=== PATIENT | female | born 1985 | race Caucasian/White ===

== ENCOUNTER 2018-12-23 18:31 | Observation (INO) | payer OTHER, SELFPAY ==
[2018-12-23 18:32] VITALS: BP 139/68; PULSE 98; RESP 18; TEMP 36.6; O2SAT 96; BMI 47.8
--- NOTE | 2018-12-23 19:01 | CT_ITS ---
We are attempting to reach an attending provider to discuss findings. An addendum with communication details will be sent when the communication is complete. STUDY: CT ABDOMEN AND PELVIS WITH CONTRAST REASON FOR EXAM: Female, 33 years old. Right lower quadrant pain and nausea RADIATION DOSAGE (If Supplied By Facility): CTDIvol = ( 17.07 ) mGy, DLP = ( 1297.68 ) mGycm TECHNIQUE: Transaxial images were obtained from the dome of the diaphragm to the symphysis pubis with oral contrast. 100 IV/Oral Isovue 300 was administered. Sagittal and coronal images were reconstructed. Individualized dose optimization techniques were used for this CT. COMPARISON: None. FINDINGS: The visualized lung bases are unremarkable. The visualized portions of the heart are within normal limits. Normal liver. The gallbladder appears to contain several gas containing lucent gallstones. Normal spleen. Normal pancreas. Normal bilateral adrenal glands. There is a small peripelvic cyst of the right kidney. Normal left kidney. Normal visualized stomach. Normal small intestine. Normal colon. The appendix is distended, measuring up to 10 mm in diameter. The appendix is fluid-filled. Periappendiceal fatty stranding is present. Normal abdominal aorta. Normal inferior vena cava. Normal retroperitoneum. Normal urinary bladder. The uterus and adnexal structures are unremarkable. Normal abdominal wall. Normal osseous structures. CT/Abdomen/Pelvis WITH Contrast IMPRESSION: The appendix is distended, fluid-filled, and demonstrates thickened contreras, it measures up to 10 mm in diameter. Periappendiceal fatty stranding is present. Findings are compatible with acute appendicitis. The gallbladder appears to contain several gas containing lucent gallstones. There is no evidence of free intra-abdominal or intrapelvic air or fluid. Electronically Signed: William Pham MD at 21:20 EDT , Service support ,
--- NOTE | 2018-12-23 19:03 | ED.DCSUM_ITS ---
- ER Visit Summary Date of Service: 12/23/18 Chief Complaint: Abdominal pain History of Present Illness: The patient is a 33 F with right lower abdominal pain. Symptoms started about 6 to 8 hours ago. She never had this before. Associate with nausea and decreased appetite. No history of abdominal surgery. 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 No other GI symptoms. No fever. No skin changes. No abdominal surgeries. Physical Examination: Afebrile and vital signs unremarkable. Right lower quadrant tenderness. No guarding or rebound. No flank tenderness. Skin appears normal. Test Results: CT, labs, urinalysis pending. Emergency Department Course and Treatment: Patient was treated with IV fluids. She declined pain medicine. Laboratory studies all fairly unremarkable. Urinalysis showed positive nitrites. test was negative. CT showed a dilated, fluid-filled appendix with stranding consistent with acute appendicitis. She also has gallstones. Treatment Plan: Patient treated with Zosyn. She has been n.p.o. since about 4:[address] Clancy was contacted for further care. Disposition: Admission Impression: 1. Acute appendicitis This note was generated with [employer] dictation software. It may contain incorrect words, spelling, and punctuation that were not noted in review of the chart prior to signing ED Disposition - Plan for ED Patient: Referrals: Austin Negro MD [Primary Care Provider] -
[2018-12-23 19:29] LABS: Mucous, Urine 0 SEEN /hpf (<or=2+); Red Blood Cells-Urine 0 SEEN /hpf (0-5)
[2018-12-23 19:43] LABS: Color, Urine Yellow (Yellow); Glucose, Dipstick Normal (Normal); Ketone-Dipstick Negative (Negative); Leukocyte Esterase-Dipstick Negative /ul (Negative); Nitrite-Dipstick Positive (Negative); Occult Blood-Urine Negative /ul (Negative); Protein-Dipstick Negative (Negative); Specific Gravity, Urine 1.015 (1.002-1.030); Urine Bilirubin Dipstick Negative (Negative); Urine Clarity Clear (Clear); Urine Urobilinogen Normal (Normal)
[2018-12-23 19:48] LABS: Internal QC Validated? YES +Cl - CLEAR BKGD; Pregnancy, Urine Negative Negative
[2018-12-23 19:53] LABS: Bacteria 1+ /hpf (None Seen); Squamous Epithelial Cells - UA 0-5 SEEN /hpf (5-10); White Blood Cells 0-5 SEEN /hpf (0-5)
[2018-12-23 20:02] LABS: Absolute Lymphocyte Count 1.99 X10^3/uL (0.83-4.51); Absolute Neutrophil Count 7.4 X10^3/uL (2.0-7.7); Basophil# 0.02 X10^3/uL; Basophil% 0.2 % (0-1); Eosinophil# 0.09 X10^3/uL; Eosinophils% 0.9 % (0-5); Hematocrit 39.9 % (37-47); Hemoglobin 12.9 g/dL (12.0-15.0); Lymphocyte # 1.99 X10^3/ul (4.0); Lymphocyte % 19.5 % (19-41); Mean Corp Hgb Conc 32.3 g/dL (32-36); Mean Corpuscular Hgb 29.5 pg (27.0-32.0); Mean Corpuscular Volume 91.1 fL (81-99); Monocyte# 0.74 X10^3/uL; Monocyte% 7.2 % (0-10); NRBC Flagged by Analyzer 0 % (0-5); Neutrophil # 7.35 X10^3/uL (2.7-7.7); Neutrophil % 71.9 % (47-70); Platelet Count 278 K/mm3 (150-450); RBC Distribution Width CV 12.7 % (11.6-14.6); RBC Distribution Width SD 41.8 fl (35.1-43.9); Red Blood Count 4.38 M/mm3 (4.2-5.4); White Blood Count 10.2 K/mm3 (4.4-11.0)
[2018-12-23 20:16] LABS: AST(SGOT) 11 U/L (15-37); Alanine Aminotransfer ALT/SGPT 23 U/L (13-56); Albumin, Serum 3.6 g/dL (3.2-5.0); Alkaline Phosphatase 55 U/L (45-117); Anion Gap 4 (5-15); BUN 11 mg/dL (7-18); BUN/Creat Ratio 12.7 RATIO (10-20); Calcium,Total 8.8 mg/dL (8.5-10.1); Chloride 108 mmol/L (98-107); Creatinine, Serum 0.87 mg/dL (0.55-1.02); EST Glomerular Filtration Rate 80 mL/min (>60); Est Glom Filt Rate - Afr Amer 97 mL/min (>60); Estimated Creatinine Clearance 84.31 ml/min; Globulin 3.7 g/dL (2.2-4.2); Glucose 103 mg/dL (74-106); Lipase 60 U/L (73-393); Potassium 3.8 mmol/L (3.5-5.1); Protein, Total 7.3 g/dL (6.4-8.2); Sodium Level 139 mmol/L (136-145)
[2018-12-23] MEDS: 0.9% Normal Saline 1,000 ML 1000 ML IV (21:19)
[2018-12-23 21:42] VITALS: BP 157/85; PULSE 73; RESP 18; TEMP 36.9; O2SAT 100; BMI 47.8
[2018-12-23 21:49] VITALS: BP 157/81
--- NOTE | 2018-12-23 21:49 | ED.RN ---
pt started her period, pad and mesh panties given.
--- NOTE | 2018-12-23 21:57 | HP.PCM_ITS ---
Problem List (1) Acute appendicitis Status: Acute Qualifiers: Acute appendicitis type: with localized peritonitis Appendicitis perforation presence: without perforation Appendicitis abscess presence: unspecified whether abscess present History of Present Illness Date of Admission: 12/23/18 The patient is a 33 year old F who presents to the [facility] emergency room with 1 day history of right mid abdominal pain. The patient weighs 287 pounds with a BMI of 47. She noticed right mid abdominal pain earlier today. The became became so severe that she found it difficult to mobilize and so she presented to the ER. Her white blood cell count is 10.2 with hemoglobin 12.9 hematocrit 39.9 per the count 2070 8000 with 71% neutrophils. BUN is [address] scan demonstrates fluid-filled distended appendix with periappendiceal inflammatory stranding. Incidental gallstones noted. The patient denies any previous abdominal surgery. She denies history of DVT. Past Medical History Allergies kiwi Allergy (Verified 12/23/18 18:32) Hives Home Medications: Ambulatory Orders Medication Instructions Recorded Famotidine [Pepcid AC] 20 mg PO DAILY 12/23/18 Surgical History: no surgical history Smoking Status: Current some day smoker Alcohol: Occasional - *Family History Maternal History Items: No pertinent history Review of Systems Constitutional: Reports: - - Last food at 4 PM just before coming in. HEENT: Denies: Difficulty Swallowing Cardiovascular: Denies: Chest Pain Respiratory: Denies: Cough Gastrointestinal: Reports: Abdominal Pain. Denies: Vomiting Psychiatric: Denies: Anxiety Endocrine: Denies: Change in Body Habitus VTE Information - Inpt Only VTE Present on Admission: No Patient Problems: Active and Suspected Problems Acute appendicitis (Acute) - Physical Exam General: Alert, Oriented x3, Cooperative, No apparent distress HEENT: Atraumatic Oral: Moist Mucosa Lungs: Clear to auscultation Cardiovascular: Regular rate, Regular Rhythm Abdomen: Bowel Sounds Present, Soft, Obese - Morbid obesity, - - Tender to even light palpation right mid abdomen Extremities: No Calf Tenderness Psych/Mental Status: Normal Affect Vital Signs Temp Pulse Resp BP Pulse Ox 98.4 F 73 18 157/81 H 100 12/23/18 21:42 12/23/18 21:42 12/23/18 21:42 12/23/18 21:49 12/23/18 21:42 Oxygen Delivery Method Room Air Weight: 287 lb 7.724 oz Body Mass Index (BMI) 47.8 Laboratory Tests Past 24 Hrs 12/23/18 12/23/18 12/23/18 19:25 19:25 19:54 WBC 10.2 RBC 4.38 Hgb 12.9 Hct 39.9 MCV 91.1 MCH 29.5 MCHC 32.3 RDW Std Deviation 41.8 RDW Coeff of Rodger 12.7 Plt Count 278 MPV 11.0 Immature Gran % (Auto) 0.300 Neut % (Auto) 71.9 H Lymph % (Auto) 19.5 [place] % (Auto) 7.2 Eos % (Auto) 0.9 Baso % (Auto) 0.2 Absolute Neuts (auto) 7.4 Absolute Lymphs (auto) 1.99 Absolute Nucleated RBC 0.00 Nucleated RBC % 0 Sodium Potassium Chloride Carbon Dioxide Anion Gap BUN Creatinine Estim Creat Clear Calc Est GFR (MDRD) Af Amer Est GFR (MDRD) Non-Af BUN/Creatinine Ratio Glucose Calcium Total Bilirubin AST ALT Alkaline Phosphatase Total Protein Albumin Globulin Albumin/Globulin Ratio Lipase Urine Color Yellow Urine Clarity Clear Urine pH 8.0 Ur Specific [place] 1.015 Urine Protein Negative Urine Glucose (UA) Normal Urine Ketones Negative Urine Occult Blood Negative Urine Nitrite Positive H Urine Bilirubin Negative Urine Urobilinogen Normal Ur Leukocyte Esterase Negative Urine RBC 0 SEEN Urine WBC 0-5 SEEN Ur Squamous Epith Cells 0-5 SEEN Urine Bacteria 1+ Urine Mucus 0 SEEN Urine Test Negative 12/23/18 19:54 WBC RBC Hgb Hct MCV MCH MCHC RDW Std Deviation RDW Coeff of [place]ger Plt Count MPV Immature Gran % (Auto) Neut % (Auto) Lymph % (Auto) [place] % (Auto) Eos % (Auto) Baso % (Auto) Absolute Neuts (auto) Absolute Lymphs (auto) Absolute Nucleated RBC Nucleated RBC % Sodium 139 Potassium 3.8 Chloride 108 H Carbon Dioxide 27.0 Anion Gap 4 L BUN 11 Creatinine 0.87 Estim Creat Clear Calc 84.31 Est GFR (MDRD) Af Amer 97 Est GFR (MDRD) Non-Af 80 BUN/Creatinine Ratio 12.7 Glucose 103 Calcium 8.8 Total Bilirubin 0.30 AST 11 L ALT 23 Alkaline Phosphatase 55 Total Protein 7.3 Albumin 3.6 Globulin 3.7 Albumin/Globulin Ratio 1.0 Lipase 60 L Urine Color Urine Clarity Urine pH Ur Specific [place] Urine Protein Urine Glucose (UA) Urine Ketones Urine Occult Blood Urine Nitrite Urine Bilirubin Urine Urobilinogen Ur Leukocyte Esterase Urine RBC Urine WBC Ur Squamous Epith Cells Urine Bacteria Urine Mucus Urine Test Assessment/Plan All Active Problems Acute appendicitis (Acute) 33-year-old female with signs and symptoms consistent with acute appendicitis. I have reviewed the films definitely the appendix is enlarged and there is stranding around it consistent with already a non-early acute appendicitis. I discussed treatment options with the patient nonsurgical and surgical options. We have discussed the technique, benefits, risks, alternatives. She is aware that her body habitus places her at increased interventional and noninterventional risk. Patient has already been administered Zosyn via the emergency room physician. She elects to proceed with definitive surgery. We will proceed as OR timing permits. Wayne Clancy M.D., F.A.C.S.
--- NOTE | 2018-12-23 22:03 | DCINST_ITS ---
<Wayne Clancy - Last Filed: 12/23/18 22:03> Discharge Diet: Light diet - advance as tolerated - if you have questions about your diet instructions, please talk to you doctor. Discharge Activity: May Not Drive - for 3-5 days or while taking narcotic pain medicine. May shower in (days): 1 Lifting Restrictions: 10 pounds Call your doctor if your incision/area has: Continuous Slow Oozing, Sudden Increased Bleeding, Increased Pain/ Swelling, Increased Redness, Foul Smelling Discharge Call your doctor if you observe: Fever of 101 or Higher Suture Line Care: Avoid Pulling/Pushing, Avoid Pinching/Bending Additional Dressing/Incision Instructions:: Change or remove dressing in 4 days. Leave steri-strips in place for 1 week. Allergies/Adverse Reactions: Allergies kiwi Allergy (Verified 12/23/18 18:32) Hives Medications to take at Discharge Famotidine [Pepcid AC] 20 mg PO DAILY 12/23/18 Hydrocodone Bitart/Apap 5-325 [[place] 5/325] 1 tablet PO Q6H PRN PRN 3 Days #10 tablet 12/24/18 The following prescriptions were given: Hydrocodone Bitart/Apap 5-325 [[place] 5/325] 1 tablet PO Q6H PRN PRN 3 Days #10 tablet PRN Reason: Pain Transmission Status: Sent to [facility] Primary Care Physician: Austin Negro MD [Primary Care Provider] - Test Results: Test results from this visit will be discussed in further detail at your follow- up appointment, if applicable. Please Follow Up With: Wayne Clancy MD - [phone] When: Call to make an appointment to be seen in about 10 days. <Vicky Evans - Last Filed: 12/24/18 09:57> Test Results: Test results from this visit will be discussed in further detail at your follow- up appointment, if applicable.
--- NOTE | 2018-12-23 23:15 | PCM.PN.BLA ---
Progress Note Pt on the OR table and procedure cancelled per anesthesia. Refer to their documentation. OR rescheduled per anesthesia. My request is earliest possible time possible. Kacy
[2018-12-23 23:19] VITALS: BMI 48.3
[2018-12-23 23:40] VITALS: BP 149/77; PULSE 73; RESP 16; TEMP 36.6; O2SAT 98
[2018-12-24] VITALS (11 sets, daily range): BP systolic 115–147; BP diastolic 47–116; PULSE 63–83; RESP 15–22; TEMP 36.6–36.9; O2SAT 92–100
--- NOTE | 2018-12-24 | APP_PTH ---
PATIENT: TRAVIS DENT LOC: U U#:[id number] AGE/SX: 33/F ROOM: [facility] RE12/24/[address]: Dr. Wayne Clancy MD : [id number] BED: 1 DIS: 12/24/2018 SPEC #: [id number] RECD: 12/24/18 14:33 STATUS: MIAH REQ #: [id number] ANA: 12/24/18 00:[address]: Wayne Clancy DEPT: SURGICAL PATHOLOGY RECD BY: Reji Negro ENTERED: 12/24/18 14:34 SP TYPE: APPENDIX OTHR DR: Dr. Austin Negro MD Tissues: Appendix, NOS Procedures: Surgery Specimen Level III HEADER OPERATION: Laparoscopic appendectomy PRE-OP DIAGNOSIS: Acute appendicitis TISSUE SUBMITTED: Appendix MICROSCOPIC DIAGNOSIS Appendix: Acute appendicitis and periappendicitis. SJ:carmelo 12/25/18 MICROSCOPIC DESCRIPTION Slides are reviewed. GROSS DESCRIPTION Received is one container labeled with the patient's name and designated appendix. The specimen consists of a vermiform appendix measuring 6 cm in length and up to 0.7 cm in diameter. Serial sections reveal a patent lumen. Forming Operator sections are submitted in one cassette. / AM:carmelo 12/24/18 TC:2 CPT: 46577
[2018-12-24] MEDS: Bupivacaine Mpf 0.5% 30 ML VIAL (02:25)
--- NOTE | 2018-12-24 03:07 | PCM.OPRPT ---
Problem List (1) Acute appendicitis Status: Acute Qualifiers: Acute appendicitis type: with localized peritonitis Appendicitis gangrene presence: unspecified whether gangrene present Appendicitis perforation presence: without perforation Appendicitis abscess presence: without abscess Qualified Code(s): K35.30 - Acute appendicitis with localized peritonitis, without perforation or gangrene Report of Operation Date of Procedure: 12/24/18 Pre-Operative Diagnosis: Acute appendicitis Post-Operative Diagnosis: Acute supperative appendicitis with periappendicitis Surgery/Procedure Performed:: Laparoscopic appendectomy Description of Surgical Findings:: Timeout and informed consent was obtained. 33-year-old female taken out from placement table underwent general endotracheal vision anesthesia. Zosyn had been administered in the emergency room several hours preoperatively. The abdomen sterilely prepped and draped. 0.5% Marcaine was used as a local anesthetic. Throughout the procedure total 30 cc was used. A vertical infraumbilical incision was created holding sutures of 0 Vicryl placed varies needle inserted saline drop test performed demonstrating adequate flow. The abdomen was insufflated with CO2 to a pressure of 12 mmHg pressure. Ashley trocar inserted. Coming up scope inserted no concern trocar injuries. Patient is noted to be morbidly obese. 5-minute trochars placed in the infraumbilical area and because of the positioning of the cecum and the appendix more in the right midabdomen I placed a trocar in the right upper quadrant. The appendix was densely adherent along the right pericolic gutter adjacent to the cecum. Separate changes were noted. There was no free fluid or perforation noted. Tedious blunt dissection was required and finally a window could be made in the mesoappendix. A standard height 45 mm stapler was used to transect the appendix flush with the cecum. Then with manipulation a vascular right stapler was used to transect the mesoappendix. The appendix was placed in a retrieval bag. 4 x 4 gauze was used to hold pressure and assure hemostasis. The staple lines for the cecum and the mesoappendix was both appear to be clean and intact. The appendix was removed through the umbilical site but slightly enlarging the fascial incision. The cecal site was again inspected was noted to be hemostatic. Trochars were removed under visualization and the abdomen was allowed to deflate of the CO2. The fascia at the umbilicus was approximated with a simple suture of 0 Vicryl and [id number] suture of 0 Vicryl. Skin edges were approximate interrupted 4 Monocryl subdermal stitches. Steri-Strips and Telfa and OpSite dressings applied. Sponge and instrument and needle counts were reported the surgeon be correct. Blood loss was minimal. She was taken to the recovery area in satisfactory condition without apparent complication. Specimens appendix. Drains none. Blood loss minimal. Wayne Clancy M.D., F.A.C.S. Type of Anesthesia:: General Anesthesiologist: Ralph Gimenez
[2018-12-24] MEDS: Ipratropium/Albuterol Sulfate 3 ML AMPUL.NEB INHALATION (03:31)
[2018-12-24] MEDS: Lactated Ringers 1,000 ML 100 ML IV (04:21)
--- NOTE | 2018-12-24 05:50 | PN.SURG_ITS ---
Patient Problems: Active and Suspected Problems Acute appendicitis (Acute) Subjective: No abdominal pain at rest - Physical Exam Lungs: Clear to auscultation, - - decreased excusion Vital Signs Temp Pulse Resp BP Pulse Ox 97.9 F 68 16 123/47 H 93 12/24/18 04:10 12/24/18 04:10 12/24/18 04:10 12/24/18 04:10 12/24/18 04:13 Oxygen Flow Rate (L/min) 2 Oxygen Delivery Method Nasal Cannula Weight: 290 lb 5.581 oz Body Mass Index (BMI) 48.3 Intake and Output for Last 24 Hours 12/22/18 12/23/18 12/24/18 23:59 23:59 23:59 Intake Total 1400 / 1400 Balance 1400 / 1400 Laboratory Tests Past 24 Hrs 12/23/18 12/23/18 12/23/18 19:25 19:25 19:54 WBC 10.2 RBC 4.38 Hgb 12.9 Hct 39.9 MCV 91.1 MCH 29.5 MCHC 32.3 RDW Std Deviation 41.8 RDW Coeff of Rodger 12.7 Plt Count 278 MPV 11.0 Immature Gran % (Auto) 0.300 Neut % (Auto) 71.9 H Lymph % (Auto) 19.5 [place] % (Auto) 7.2 Eos % (Auto) 0.9 Baso % (Auto) 0.2 Absolute Neuts (auto) 7.4 Absolute Lymphs (auto) 1.99 Absolute Nucleated RBC 0.00 Nucleated RBC % 0 Sodium Potassium Chloride Carbon Dioxide Anion Gap BUN Creatinine Estim Creat Clear Calc Est GFR (MDRD) Af Amer Est GFR (MDRD) Non-Af BUN/Creatinine Ratio Glucose Calcium Total Bilirubin AST ALT Alkaline Phosphatase Total Protein Albumin Globulin Albumin/Globulin Ratio Lipase Urine Color Yellow Urine Clarity Clear Urine pH 8.0 Ur Specific [place] 1.015 Urine Protein Negative Urine Glucose (UA) Normal Urine Ketones Negative Urine Occult Blood Negative Urine Nitrite Positive H Urine Bilirubin Negative Urine Urobilinogen Normal Ur Leukocyte Esterase Negative Urine RBC 0 SEEN Urine WBC 0-5 SEEN Ur Squamous Epith Cells 0-5 SEEN Urine Bacteria 1+ Urine Mucus 0 SEEN Urine Test Negative 12/23/18 19:54 WBC RBC Hgb Hct MCV MCH MCHC RDW Std Deviation RDW Coeff of [place]ger Plt Count MPV Immature Gran % (Auto) Neut % (Auto) Lymph % (Auto) [place] % (Auto) Eos % (Auto) Baso % (Auto) Absolute Neuts (auto) Absolute Lymphs (auto) Absolute Nucleated RBC Nucleated RBC % Sodium 139 Potassium 3.8 Chloride 108 H Carbon Dioxide 27.0 Anion Gap 4 L BUN 11 Creatinine 0.87 Estim Creat Clear Calc 84.31 Est GFR (MDRD) Af Amer 97 Est GFR (MDRD) Non-Af 80 BUN/Creatinine Ratio 12.7 Glucose 103 Calcium 8.8 Total Bilirubin 0.30 AST 11 L ALT 23 Alkaline Phosphatase 55 Total Protein 7.3 Albumin 3.6 Globulin 3.7 Albumin/Globulin Ratio 1.0 Lipase 60 L Urine Color Urine Clarity Urine pH Ur Specific [place] Urine Protein Urine Glucose (UA) Urine Ketones Urine Occult Blood Urine Nitrite Urine Bilirubin Urine Urobilinogen Ur Leukocyte Esterase Urine RBC Urine WBC Ur Squamous Epith Cells Urine Bacteria Urine Mucus Urine Test Medical Necessity - Tobacco Use Smoking Status: Current some day smoker Assessment/Plan All Active Problems Acute appendicitis (Acute) Low saturation secondary to obesity and poor inspiration Need to mobilize and stress pulm toilet Would otherwise be ready for surgical discharge today
[2018-12-24] MEDS: Acetaminophen 325 MG Tablet 650 MG PO (08:28)
[2018-12-24] MEDS: Famotidine 20 MG Tablet PO (08:28)
[2018-12-24] MEDS: HYDROcodone Bitartrate/Apap 5/325 Tablet PO (12:36)
== END 2018-12-24 14:32 | disposition home or self-care (01) ==
LOC: ED 21:30 → SDC 22:22 → PCU 12-24 10:15 → SDC 12-24 10:16 → PCU 12-24 10:17
PROVIDERS: Admitting Provider Surgery; Emergency Provider Emergency Medicine; Family Provider Family Medicine; PCP Family Medicine; Referring Provider Surgery; Visit Provider Surgery
PROC: 0DTJ4ZZ Resection of Appendix, Percutaneous Endoscopic Approach (ICD-10-PCS; CPT 44970; principal; 2018-12-23 22:30)
DX: K35.21 Acute appendicitis with generalized peritonitis, with abscess (principal); K80.20 Calculus of gallbladder without cholecystitis without obstruction; F17.200 Nicotine dependence, unspecified, uncomplicated; E66.01 Morbid (severe) obesity due to excess calories; Z68.42 Body mass index [BMI] 45.0-49.9, adult; Z71.3 Dietary counseling and surveillance; Z53.8 Procedure and treatment not carried out for other reasons; K21.9 Gastro-esophageal reflux disease without esophagitis
CPT/HCPCS: 44970; 74177; 80053; 81001; 81025; 83690; 85025; 88304; 94640; 96360; 96361; 96365; 96366; 99218; 99283; 99406; J7030; J7120; Q9967; A4216; G0378; J2405

== ENCOUNTER 2019-03-28 22:25 | Observation (INO) | payer OTHER, SELFPAY ==
[2018-12-23 23:19] VITALS: BMI 48.3
[2019-03-28 22:26] VITALS: BP 160/98; PULSE 62; RESP 16; TEMP 36.8; O2SAT 97; BMI 48.0
--- NOTE | 2019-03-28 22:27 | ED.RN ---
RN CALLED FOR EKG, NO OLD EKGS IN MUSE
[2019-03-28 22:31] VITALS: PULSE 57
--- NOTE | 2019-03-28 23:02 | EKG12_ITS ---
Test Reason : CP Blood Pressure : / mmHG Vent. Rate : 065 BPM Atrial Rate : 065 BPM P-R Int : 134 ms QRS Dur : 072 ms QT Int : 394 ms P-R-T Axes : 020 008 010 degrees QTc Int : 409 ms Normal sinus rhythm Normal ECG Confirmed by WILBERTO ELIAS MD ([id number]), editor & co founder ABHINAV ESPARZA ([id number] on 04/02/2019 10:27:13 AM Referred By: CONNIE Confirmed By:WILBERTO ELIAS MD
--- NOTE | 2019-03-28 23:03 | RAD_ITS ---
HISTORY: CPChest PainRAD - Chest EXAM: XR Chest 2 Views: COMPARISON: None FINDINGS: # of images incl. paperwork: 2 Lungs are clear. Heart is not enlarged. Bones are normal. Pulmonary vascularity is distinct. No effusions. RAD/Chest PA and Lateral IMPRESSION: Normal. at 2343 Reported and signed by: Yang Valdovinos MD Electronically Signed: Yang Valdovinos MD at 23:42 EDT Tel , Service support ,
--- NOTE | 2019-03-28 23:15 | ED.DCSUM_ITS ---
History of Present Illness Chief Complaint: Chest Pain Informant: Patient Onset: Today Context: Gradual Onset Current Severity: Severe Maximum Severity: Severe Narrative: Patient is a 34-year-old female with no significant past medical history presenting with worsening back and rib pain. Patient states she is been having left-sided rib pain for the past few weeks. Today she suddenly developed worsening back pain. She has associated shortness of breath with it. No associated cough. Patient had one episode of vomiting today. She states that she earlier had epigastric pain which felt like indigestion but was more severe. She states this is different than her normal indigestion. Patient tried taking a muscle relaxer at home with no relief of her symptoms. She denies any swelling of her legs. She denies any history of DVT or PE. She is a family history of coronary artery disease and a personal history of tobacco use. She did eat today and her pain was not significantly changed by eating. Patient denies any urinary symptoms. She is not concern for . She denies any other complaints at this time. Past Medical History - Allergies and Home Meds Allergies/Adverse Reactions: Allergies kiwi Allergy (Verified 03/28/19 22:32) [facility] Primary Care Physician: Austin Negro MD [Primary Care Provider] - Past Medical History: - - GERD Surgical History: appendectomy Lives: Spouse/ Significant Other Smoking Status: Current some day smoker - Family History Maternal Family History: Reports: No pertinent history Review of Systems All systems negative except as indicated Cardiovascular: Reports: Chest pain Respiratory: Reports: Dyspnea Gastrointestinal: Reports: Nausea, Vomiting Musculoskeletal: Reports: Back pain Physical Exam Vital Signs/Narrative: Vital Signs Temp Pulse Resp BP Pulse Ox 03/28/19 22:31 57 L 03/28/19 22:26 98.2 F 62 16 160/98 H 97 Inital Vital Signs reviewed: Yes General: Well nourished, Well developed, Obese, No Acute Distress Head: Normocephalic, Atraumatic Eyes: Perrl, EOMI ENT: Moist mucous membranes, No rhinorrhea Neck: Supple, Nontender, No JVD Cardiovascular: Regular rate, Regular rhythm, No murmurs, - - 2+ pulses bilaterally?radial and DP Respiratory: No distress, CTA bilaterally, Chest nontender, - - No chest wall crepitus Abdomen: Soft, Nontender, Nondistended, Normal bowel sounds, Tender - Right upper quadrant, Rahman's sign. Negative for: Guarding, Rebound tenderness, Pulsatile mass Back: Nontender, Normal Inspection, - - Back pain is localized to left lateral and posterior ribs approximately 7 through 9, pain is not reproducible with palpation. No midline tenderness. Negative for: CVA tenderness Extremities: Nontender, No edema Skin: Normal color, No rash Neurological: Alert, Oriented x3, Cranial nerves II-XII grossly intact, Normal Strength, Normal Sensation Psychological: Normal affect, Normal Mood Diagnostic/Tx/Re-eval Chest X-Ray - ED: 2 View, Read by ED Physician, Read by Radiologist, No Acute Disease Diagnostic Data Chest X-Ray 03/28/19 23:03 IMPRESSION: Normal. at 2343 Reported and signed by: Yang Valdovinos MD Electronically Signed: Yang Valdovinos MD at 23:42 EDT Tel , Service support , Abdomen/Pelvis CT 03/29/19 00:10 IMPRESSION: Cholelithiasis and acute cholecystitis Individualized dose optimization techniques were used for this CT. at 0248 Reported and signed by: Yang Valdovinos MD Electronically Signed: Yang Valdovinos MD at 2:47 EDT Tel , Service support , Gallbladder Ultrasound 03/29/19 03:03 IMPRESSION: Tenderness of the gallbladder with insonation, gallbladder wall thickening, pericholecystic fluid, and choledocholithiasis consistent with acute cholecystitis.. at 0434 Reported and signed by: Yang Valdovinos MD Electronically Signed: Yang Valdovinos MD at 4:33 EDT Tel , Service support , Laboratory Results - last 24 hr 03/28/19 03/28/19 03/28/19 22:29 22:29 22:29 WBC 9.8 RBC 4.38 Hgb 13.0 Hct 39.1 MCV 89.3 MCH 29.7 MCHC 33.2 RDW Std Deviation 40.4 RDW Coeff of Rodger 12.3 Plt Count 352 MPV 10.5 Immature Gran % (Auto) 0.300 Neut % (Auto) 56.5 Lymph % (Auto) 32.7 [place] % (Auto) 9.0 Eos % (Auto) 1.2 Baso % (Auto) 0.3 Absolute Neuts (auto) 5.6 Absolute Lymphs (auto) 3.21 Nucleated RBC % 0 Sodium 141 Potassium 4.1 Chloride 108 H Carbon Dioxide 28.0 Anion Gap 5 BUN 13 Creatinine 0.74 Estim Creat Clear Calc 98.21 Est GFR (MDRD) Af Amer 116 Est GFR (MDRD) Non-Af 96 BUN/Creatinine Ratio 17.4 Glucose 106 Calcium 9.1 Total Bilirubin 0.20 Direct Bilirubin 0.08 AST 13 L ALT 24 Alkaline Phosphatase 61 Troponin I < 0.015 Total Protein 7.7 Albumin 3.6 Globulin 4.1 Lipase 98 Urine Color Urine Clarity Urine pH Ur Specific [place] Urine Protein Urine Glucose (UA) Urine Ketones Urine Occult Blood Urine Nitrite Urine Bilirubin Urine Urobilinogen Ur Leukocyte Esterase Urine RBC Urine WBC Ur Squamous Epith Cells Urine Bacteria Urine Mucus Urine Test 03/29/19 03/29/19 00:28 00:28 WBC RBC Hgb Hct MCV MCH MCHC RDW Std Deviation RDW Coeff of Rodger Plt Count MPV Immature Gran % (Auto) Neut % (Auto) Lymph % (Auto) [place] % (Auto) Eos % (Auto) Baso % (Auto) Absolute Neuts (auto) Absolute Lymphs (auto) Nucleated RBC % Sodium Potassium Chloride Carbon Dioxide Anion Gap BUN Creatinine Estim Creat Clear Calc Est GFR (MDRD) Af Amer Est GFR (MDRD) Non-Af BUN/Creatinine Ratio Glucose Calcium Total Bilirubin Direct Bilirubin AST ALT Alkaline Phosphatase Troponin I Total Protein Albumin Globulin Lipase Urine Color Yellow Urine Clarity Clear Urine pH 6.0 Ur Specific [place] 1.020 Urine Protein Negative Urine Glucose (UA) Normal Urine Ketones Negative Urine Occult Blood Negative Urine Nitrite Negative Urine Bilirubin Negative Urine Urobilinogen Normal Ur Leukocyte Esterase Negative Urine RBC 0-5 SEEN Urine WBC 0-5 SEEN Ur Squamous Epith Cells 0 SEEN Urine Bacteria 0 SEEN Urine Mucus 0 SEEN Urine Test Negative - Rhythm Strip Rhythm Strip: Sinus Rhythm Rate: 65 Ectopy: None - EKG Initial EKG Interpretation: Sinus Rhythm, - - Sinus rhythm at a rate of 65 Normal intervals Normal axis Normal ST segments Nonspecific T wave inversion in lead III - Medical Decision Making Patient is evaluated for bilateral rib pain and left back pain. She is hemodynamically stable in the emergency room. She is given 4 of morphine which significantly improved her symptoms. EKG and chest x-ray are normal. On physical exam patient does not have any tenderness of her thorax however she does have significant tenderness in her right upper quadrant. CBC, CMP and lipase are grossly normal. Urinalysis is normal and urine is negative. CT of the abdomen and pelvis is obtained because of patient's significant abdominal tenderness and discomfort. CT shows findings concerning for acute cholecystitis. I did call surgery on-call, Dr. Downing who requested a formal ultrasound of the right upper quadrant. This was obtained which also showed acute cholecystitis. Patient continues to have adequate pain control with initial 4 mg of morphine. She will be admitted to surgical service for definitive management. She is agreeable to this. She is stable for the general medical floor at time of disposition. ED Disposition - Plan for ED Patient: Disposition: Acute Care [facility] Diagnosis: Acute cholecystitis Referrals: Austin Negro MD [Primary Care Provider] -
[2019-03-28 23:30] VITALS: BP 105/85; PULSE 75; RESP 16; O2SAT 98
[2019-03-28 23:31] LABS: Anion Gap 5 (5-15); BUN 13 mg/dL (7-18); BUN/Creat Ratio 17.4 RATIO (10-20); Calcium,Total 9.1 mg/dL (8.5-10.1); Chloride 108 mmol/L (98-107); Creatinine, Serum 0.74 mg/dL (0.55-1.02); EST Glomerular Filtration Rate 96 mL/min (>60); Est Glom Filt Rate - Afr Amer 116 mL/min (>60); Estimated Creatinine Clearance 98.21 ml/min; Glucose 106 mg/dL (74-106); Lipase 98 U/L (73-393); Potassium 4.1 mmol/L (3.5-5.1); Sodium Level 141 mmol/L (136-145)
[2019-03-28] MEDS: Ondansetron 4 MG/2 ML Vial IV (23:34)
[2019-03-28] MEDS: Morphine 4 MG/ML Syringe IV (23:34)
[2019-03-28 23:36] LABS: AST(SGOT) 13 U/L (15-37); Alanine Aminotransfer ALT/SGPT 24 U/L (13-56); Albumin, Serum 3.6 g/dL (3.2-5.0); Alkaline Phosphatase 61 U/L (45-117); Bilirubin, Direct 0.08 mg/dL (0.00-0.30); Globulin 4.1 g/dL (2.2-4.2); Protein, Total 7.7 g/dL (6.4-8.2)
[2019-03-28 23:39] LABS: Absolute Lymphocyte Count 3.21 X10^3/uL (0.83-4.51); Absolute Neutrophil Count 5.6 X10^3/uL (2.0-7.7); Basophil# 0.03 X10^3/uL; Basophil% 0.3 % (0-1); Eosinophil# 0.12 X10^3/uL; Eosinophils% 1.2 % (0-5); Hematocrit 39.1 % (37-47); Lymphocyte # 3.21 X10^3/ul (4.0); Lymphocyte % 32.7 % (19-41); Mean Corp Hgb Conc 33.2 g/dL (32-36); Mean Corpuscular Hgb 29.7 pg (27.0-32.0); Mean Corpuscular Volume 89.3 fL (81-99); Mean Platelet Vol. 10.5 fl (6.2-12.0); Monocyte# 0.88 X10^3/uL; NRBC Flagged by Analyzer 0 % (0-5); Neutrophil # 5.55 X10^3/uL (2.7-7.7); Neutrophil % 56.5 % (47-70); Platelet Count 352 K/mm3 (150-450); RBC Distribution Width CV 12.3 % (11.6-14.6); RBC Distribution Width SD 40.4 fl (35.1-43.9); Red Blood Count 4.38 M/mm3 (4.2-5.4); White Blood Count 9.8 K/mm3 (4.4-11.0)
[2019-03-29] VITALS (18 sets, daily range): BP systolic 112–153; BP diastolic 61–95; PULSE 52–87; RESP 10–18; TEMP 36.2–37.3; O2SAT 93–99; BMI 47.4; BMI 47.5
--- NOTE | 2019-03-29 00:10 | CT_ITS ---
HISTORY: RUQ AND CHEST PAIN TECHNIQUE: Helically acquired images were obtained of the abdomen and pelvis following the intravenous administration of 100 ml of Isovue 300 Iodinated contrast. 2D reformats. No oral contrast was administered. A radiation dose optimization technique was used for this scan. COMPARISON: December 23, 2018 FINDINGS: # of images incl. paperwork: 487 LUNG BASES: Clear. CT abdomen: Bones are unremarkable. The gallbladder the gallbladder is distended. The gallbladder wall is thickened. Pericholecystic fluid is present. Cholesterol gallstones are present within the gallbladder lumen. No intra-or extrahepatic biliary ductal dilatation. No perceived choledocholithiasis. Negative predictive value to exclude choledocholithiasis the CT scan is less than that of an MRI or ERC. The degree of distention of the gallbladder, gallbladder wall thickening, no pericholecystic fluid are new since the previous study. The cholesterol gallstones were present previously . Liver, spleen, pancreas, and adrenal glands, are normal. Superior pole right parapelvic cyst is unchanged. No hydronephrosis or nephrolithiasis.. The aorta is normal. CT pelvis: No ascites is present. The uterus and ovaries are normal. Follicles are present on both ovaries. The appendix has been resected. The bladder is is somewhat decompressed. Bowel gas pattern is normal. CT/Abdomen/Pelvis WITH Contrast IMPRESSION: Cholelithiasis and acute cholecystitis Individualized dose optimization techniques were used for this CT. at 0248 Reported and signed by: Yang Valdovinos MD Electronically Signed: Yang Valdovinos MD at 2:47 EDT Tel , Service support ,
[2019-03-29 00:33] LABS: Bacteria 0 SEEN /hpf (None Seen); Mucous, Urine 0 SEEN /hpf (<or=2+); Squamous Epithelial Cells - UA 0 SEEN /hpf (5-10)
[2019-03-29 00:41] LABS: Internal QC Validated? YES +Cl - CLEAR BKGD; Pregnancy, Urine Negative Negative
[2019-03-29 00:49] LABS: Color, Urine Yellow (Yellow); Glucose, Dipstick Normal (Normal); Ketone-Dipstick Negative (Negative); Leukocyte Esterase-Dipstick Negative /ul (Negative); Nitrite-Dipstick Negative (Negative); Occult Blood-Urine Negative /ul (Negative); Protein-Dipstick Negative (Negative); Red Blood Cells-Urine 0-5 SEEN /hpf (0-5); Urine Bilirubin Dipstick Negative (Negative); Urine Clarity Clear (Clear); Urine Urobilinogen Normal (Normal); White Blood Cells 0-5 SEEN /hpf (0-5)
--- NOTE | 2019-03-29 03:03 | US_ITS ---
HISTORY: PAbdominal PainUS - GB, Liver, AbdomenACUTE CHOLECYSTITIS ON CT TECHNIQUE: Sherwood scale and color doppler imaging was performed of the pancreas, liver, and gallbladder. COMPARISON: CT scan of the abdomen and pelvis dated March 29, 2019, 1-1/2 hours earlier FINDINGS: # of images incl. paperwork: 89 Liver is normal in size and appearance. No biliary dilatation. Gallstones are present within the gallbladder lumen. Pericholecystic fluid is present. The gallbladder wall is thickened. The gallbladder is distended. Gallbladder wall measures 8 mm. Common bile duct measures 5 mm. Tenderness upon insonation the gallbladder. Visualized pancreas is normal in appearance. Right kidney is normal in size and appearance. Visualized abdominal aorta has normal caliber. IVC is patent. Hepatopedal flow is present within the central portal vein. US/Gallbladder IMPRESSION: Tenderness of the gallbladder with insonation, gallbladder wall thickening, pericholecystic fluid, and choledocholithiasis consistent with acute cholecystitis.. at 0434 Reported and signed by: Yang Valdovinos MD Electronically Signed: Yang Valdovinos MD at 4:33 EDT Tel , Service support ,
[2019-03-29] MEDS: Lactated Ringers 1,000 ML 125 ML IV ×2 (06:45→16:15)
--- NOTE | 2019-03-29 07:03 | GALL_PTH ---
PATIENT: TRAVIS DENT LOC: MS3 U#:[id number] AGE/SX: 34/F ROOM: MS316 RE03/29/[address]: Dr. Susanna Downing MD : 1985 BED: 1 DIS: 03/29/2019 SPEC #: [id number] RECD: 03/29/19 15:55 STATUS: MIAH REAidee #: [id number] ANA: 03/29/19 07:[address]: Susanna Downing DEPT: SURGICAL PATHOLOGY RECD BY: Travis Franks ENTERED: 03/30/19 08:57 SP TYPE: TEZ HALL DR: Dr. Austin Negro MD Tissues: Gallbladder, NOS Procedures: Surgery Specimen Level III HEADER OPERATION: Laparoscopic, cholecystectomy with IOC PRE-OP DIAGNOSIS: Acute cholecystitis TISSUE SUBMITTED: Gallbladder MICROSCOPIC DIAGNOSIS Gallbladder, cholecystectomy: Acute and chronic cholecystitis and cholelithiasis. SJ:carmelo 03/31/19 MICROSCOPIC DESCRIPTION Slides are reviewed. GROSS DESCRIPTION Received is one container labeled with the patient's name and designated gallbladder. The specimen consists of a gallbladder measuring 10.5 cm in length and up to 3.5 cm in diameter. The external surface is pink-weaver, smooth and glistening for the most part. Focally it is granular, hemorrhagic and contains cautery artifact. The gallbladder contains thick green-yellow mucoid bile and three ovoid to round to mulberry greenish-yellow stones measuring in aggregate 4 x 4.5 x 2 cm and 1 to 3 cm in greatest dimension. The mucosa is bile-stained and without any mass lesions. The gallbladder wall measures up to 0.3 cm in thickness. A focal area shows increased amount of subserosal fat. Florist Supplies Salesperson sections from the gallbladder and the cystic duct are submitted in one cassette. / SJ:carmelo 03/30/19 TC:2 CPT: 11212
[2019-03-29] MEDS: Morphine 2 MG/ML Syringe IV (07:04)
--- NOTE | 2019-03-29 07:20 | PCM.HP.STD ---
History of Present Illness Date of Admission: 03/29/19 The patient is a 34 year old F presented to the ER due to bilateral upper flank pain radiating to her chest. Patient CT abdomen pelvis was consistent with acute cholecystitis, ultrasound of the gallbladder also showed a thickened wall, gallstones, no pericholecystic fluid, normal common bile duct. Patient's labs were within normal limits on admission including white blood cell count and liver function test. Patient did recently have her appendix out in December of this year. Patient states prior to yesterday she was eating well denied any discomfort. Patient did have some nausea and vomiting with this as well. Currently pain is controlled with morphine. 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 Lives: Spouse/ Significant Other Smoking Status: Current some day smoker Tobacco Use: Cigarettes - *Family History Maternal History Items: No pertinent history Review of Systems Constitutional: Reports: Anorexia Eyes: Denies: Blurred vision Cardiovascular: Denies: Chest Pain Respiratory: Denies: Shortness of Breath Gastrointestinal: Reports: Abdominal Pain Genitourinary: Denies: Dysuria VTE Information - Inpt Only VTE Present on Admission: Yes VTE Mechan Device Prophylaxis: SCD's VTE Pharm Prophylaxis ordered?: No Reason prophylaxis not ordered:: Treatment Not Indicated Patient Problems: Active and Suspected Problems (Last Reviewed 01/04/19 @ 13:10 by Jerri Gallegos) Acute cholecystitis (Acute) - Physical Exam General: Alert, Oriented x3, Cooperative, No apparent distress HEENT: Atraumatic Lungs: Normal air movement Cardiovascular: Regular rate Abdomen: Soft, Non-Distended, Obese, Tender - Right upper quadrant, no peritoneal signs Extremities: No clubbing, No cyanosis Neurological: Cranial nerves II-XII grossly intact Psych/Mental Status: Normal Affect Vital Signs Temp Pulse Resp BP Pulse Ox 98.1 F 52 L 16 142/87 H 96 03/29/19 05:45 03/29/19 05:45 03/29/19 05:45 03/29/19 05:45 03/29/19 05:45 Oxygen Delivery Method Room Air Weight: 284 lb 13.396 oz Body Mass Index (BMI) 47.4 Intake and Output for Last 24 Hours 03/27/19 03/28/19 03/29/19 23:59 23:59 23:59 Intake Total 110 / 110 Balance 110 / 110 Laboratory Tests Past 24 Hrs 03/28/19 03/28/19 03/28/19 22:29 22:29 22:29 WBC 9.8 RBC 4.38 Hgb 13.0 Hct 39.1 MCV 89.3 MCH 29.7 MCHC 33.2 RDW Std Deviation 40.4 RDW Coeff of Rodger 12.3 Plt Count 352 MPV 10.5 Immature Gran % (Auto) 0.300 Neut % (Auto) 56.5 Lymph % (Auto) 32.7 [place] % (Auto) 9.0 Eos % (Auto) 1.2 Baso % (Auto) 0.3 Absolute Neuts (auto) 5.6 Absolute Lymphs (auto) 3.21 Nucleated RBC % 0 Sodium 141 Potassium 4.1 Chloride 108 H Carbon Dioxide 28.0 Anion Gap 5 BUN 13 Creatinine 0.74 Estim Creat Clear Calc 98.21 Est GFR (MDRD) Af Amer 116 Est GFR (MDRD) Non-Af 96 BUN/Creatinine Ratio 17.4 Glucose 106 Calcium 9.1 Total Bilirubin 0.20 Direct Bilirubin 0.08 AST 13 L ALT 24 Alkaline Phosphatase 61 Troponin I < 0.015 Total Protein 7.7 Albumin 3.6 Globulin 4.1 Lipase 98 Urine Color Urine Clarity Urine pH Ur Specific [place] Urine Protein Urine Glucose (UA) Urine Ketones Urine Occult Blood Urine Nitrite Urine Bilirubin Urine Urobilinogen Ur Leukocyte Esterase Urine RBC Urine WBC Ur Squamous Epith Cells Urine Bacteria Urine Mucus Urine Test 03/29/19 03/29/19 00:28 00:28 WBC RBC Hgb Hct MCV MCH MCHC RDW Std Deviation RDW Coeff of Rodger Plt Count MPV Immature Gran % (Auto) Neut % (Auto) Lymph % (Auto) [place] % (Auto) Eos % (Auto) Baso % (Auto) Absolute Neuts (auto) Absolute Lymphs (auto) Nucleated RBC % Sodium Potassium Chloride Carbon Dioxide Anion Gap BUN Creatinine Estim Creat Clear Calc Est GFR (MDRD) Af Amer Est GFR (MDRD) Non-Af BUN/Creatinine Ratio Glucose Calcium Total Bilirubin Direct Bilirubin AST ALT Alkaline Phosphatase Troponin I Total Protein Albumin Globulin Lipase Urine Color Yellow Urine Clarity Clear Urine pH 6.0 Ur Specific [place] 1.020 Urine Protein Negative Urine Glucose (UA) Normal Urine Ketones Negative Urine Occult Blood Negative Urine Nitrite Negative Urine Bilirubin Negative Urine Urobilinogen Normal Ur Leukocyte Esterase Negative Urine RBC 0-5 SEEN Urine WBC 0-5 SEEN Ur Squamous Epith Cells 0 SEEN Urine Bacteria 0 SEEN Urine Mucus 0 SEEN Urine Test Negative Assessment/Plan All Active Problems (Last Reviewed 01/04/19 @ 13:10 by Jerri Gallegos) Acute cholecystitis (Acute) Hx of appendectomy (Acute) Acute appendicitis (Acute) 34-year-old female with acute cholecystitis, cholelithiasis Reviewed the anatomy with the patient and discussed the procedure: laparoscopic cholecystectomy with possible cholangiograms, possible open. Review risks including but not limited to bleeding, infection, hernia, bile leak, retained gallstones requiring another procedure ERCP- Endoscopic Retrograde Cholangiopancreatography, injury to another organ (bile ducts, common bile duct, small bowel, etc.) which may require transfer to a tertiary care facility and conversion to an open procedure. Patient no further questions this time. OR scheduled for about 130PM Susanna Downing M.D. Pager: [phone] [facility] [address] [place] [address], Outpatient [place], [address] [place] [address] Office: [phone] Code Visit Inpatient E&M: 01821 Init Hosp L2
[2019-03-29 07:42] LABS: Absolute Lymphocyte Count 2.84 X10^3/uL (0.83-4.51); Absolute Neutrophil Count 5.3 X10^3/uL (2.0-7.7); Basophil# 0.03 X10^3/uL; Basophil% 0.3 % (0-1); Eosinophil# 0.07 X10^3/uL; Eosinophils% 0.8 % (0-5); Hematocrit 39.1 % (37-47); Hemoglobin 12.5 g/dL (12.0-15.0); Lymphocyte # 2.84 X10^3/ul (4.0); Mean Corpuscular Hgb 29.1 pg (27.0-32.0); Mean Corpuscular Volume 90.9 fL (81-99); Mean Platelet Vol. 10.1 fl (6.2-12.0); Monocyte# 0.59 X10^3/uL; Monocyte% 6.6 % (0-10); NRBC Flagged by Analyzer 0 % (0-5); Neutrophil # 5.33 X10^3/uL (2.7-7.7); Neutrophil % 60.1 % (47-70); Platelet Count 311 K/mm3 (150-450); RBC Distribution Width CV 12.4 % (11.6-14.6); RBC Distribution Width SD 41.1 fl (35.1-43.9); White Blood Count 8.9 K/mm3 (4.4-11.0)
[2019-03-29 07:49] LABS: AST(SGOT) 10 U/L (15-37); Alanine Aminotransfer ALT/SGPT 21 U/L (13-56); Albumin, Serum 3.5 g/dL (3.2-5.0); Alkaline Phosphatase 59 U/L (45-117); Anion Gap 7 (5-15); BUN 10 mg/dL (7-18); BUN/Creat Ratio 12.5 RATIO (10-20); Bilirubin, Direct 0.06 mg/dL (0.00-0.30); Calcium,Total 8.4 mg/dL (8.5-10.1); Chloride 105 mmol/L (98-107); EST Glomerular Filtration Rate 88 mL/min (>60); Est Glom Filt Rate - Afr Amer 107 mL/min (>60); Estimated Creatinine Clearance 90.84 ml/min; Globulin 3.8 g/dL (2.2-4.2); Glucose 92 mg/dL (74-106); Potassium 3.6 mmol/L (3.5-5.1); Protein, Total 7.3 g/dL (6.4-8.2); Sodium Level 141 mmol/L (136-145)
[2019-03-29] MEDS: 0.9% Normal Saline 1,000 ML 125 ML IV (09:29)
--- NOTE | 2019-03-29 11:17 | CASEMGMT ---
Social Work Note Operator updated this worker that pt would like advanced directives information. SW met with pt and introduced self and role at [facility]. Pt is alert and orientated x3. Pt receptive to taking advanced directives documents, states she would like to take documents home and review them. Pt states she works at a [employer] and will have someone at the bank be the notary for the documents. Pt denied additional needs or concerns at this time. La Nena Carbone REVIEW CONSULTANT, MAKE UP ARTIST
--- NOTE | 2019-03-29 11:39 | NURSING ---
Report called to Ivone MONTAÑO in [place].
[2019-03-29] MEDS: Lactated Ringers 1,000 ML 100 ML IV (13:10)
--- NOTE | 2019-03-29 14:00 | RAD_ITS ---
STUDY: INTRAOPERATIVE CHOLANGIOGRAM. REASON FOR EXAM: Female, 34 years old. Laparoscopic cholecystectomy. FLUOROSCOPY TIME (if supplied): ( 6.6 seconds ) minutes/seconds TECHNIQUE: An intraoperative cholangiogram was performed by the surgeon. Imaging was submitted. COMPARISON: None. FINDINGS: The intrahepatic biliary ducts are unremarkable. The common bile duct is not dilated. No intraluminal filling defect is seen. There is free flow of contrast into the duodenum. RAD/Cholangiogram/ O R,Initial IMPRESSION: Unremarkable intraoperative cholangiogram. Electronically Signed: Mendoza Brown, at 15:53 EDT , Service support ,
[2019-03-29] MEDS: Bupivacaine Mpf 0.5% 30 ML VIAL (15:39)
--- NOTE | 2019-03-29 15:41 | PCM.OPRPT ---
Report of Operation Date of Procedure: 03/29/19 Pre-Operative Diagnosis: Acute cholecystitis, cholelithiasis Post-Operative Diagnosis: Same Surgery/Procedure Performed:: Laparoscopic cholecystectomy with cholangiograms moving picture producer: Lee Nolasco Type of Anesthesia:: General/Supplemental Anesthesiologist: Hardik Aguirre Special Medications: Zosyn 3.375 g IV x1 Specimen's removed: gallbladder Estimated Blood Loss (mL): 20 cc Fluids Replaced: 1700 cc Description of Procedure: Indications this is a 34 year-old female who developed abdominal pain/nausea/vomiting and on workup was found to have cholelithiasis, acute cholecystitis, with a normal common bile duct. Laparoscopic cholecystectomy was elected. Description procedure: The patient was placed on operating table in supine position. General Anesthesia was induced. A timeout was completed verifying correct patient, procedure, site, position and special equipment prior to beginning procedure. The abdomen was prepped and draped in usual sterile fashion. An incision was made in the natural skin line above the umbilicus. The fascia was elevated and incised. The peritoneum was elevated and incised. Entry into the peritoneum was confirmed visually and no bowel was noted in the vicinity of the incision. Wagoner trocar was placed. The abdomen was insufflated with carbon dioxide to a pressure of 12-15 mmHg. Patient tolerated insufflation well. The laparoscope was then inserted and abdomen inspected. No injuries from initial trocar placement were noted. Additional trochars were then inserted in the following locations 5 mm trocar in the epigastrium and 2 more 5 mm trochars along the right costal margin. The abdomen was inspected no abnormalities were found. The table is placed in reverse Trendelenburg position with the right side up. The adhesions between the gallbladder and omentum were lysed sharply/carefully dissected. Patient had dense adhesions between the omentum and gallbladder especially near the neck of the gallbladder. The dome of the gallbladder was grasped with atraumatic grasper passed through the lateral port and retracted over the dome of the liver. Infundibulum was then grasped with atraumatic grasper through the midclavicular port and retracted to the right lower quadrant. This maneuver exposed Calot's triangle. The peritoneum overlying the gallbladder infundibulum was then incised and cystic duct and artery identified and circumferentially dissected. Sheets catheter was used for cholangiograms. The cholangiogram showed good filling of the common bile duct into the duodenum with no filling defects, good filling of the right and left bile ducts as well. The cystic duct and artery were then doubly clipped and divided close to the gallbladder. The gallbladder then dissected from its peritoneal attachments by electrocautery. Hemostasis was checked and the gallbladder and contained stones were removed using the endoscopic retrieval bag through the umbilical port after enlarging the umbilical port due to the gallstones. The gallbladder is passed off table as specimen. The gallbladder fossa was copiously irrigated with saline and hemostasis obtained. There is no evidence of bleeding from the gallbladder fossa or cystic artery leakage of bile from the cystic duct stump. Secondary trochars removed under direct vision. No bleeding was noted the trocar sites. The laparoscope was withdrawn and umbilical trocar removed. The abdomen was allowed to collapse. The fascia of the 12 mm trocar was closed with 2 [id number] 0 Vicryl suture. The skin was closed with sutures of 4-0 Monocryl and Steri-Strips. The orogastric tube was removed and the patient was extubated. The patient tolerated procedure well and was taken to the postanesthesia care unit in stable condition. - Complications none
--- NOTE | 2019-03-29 15:44 | DCINST_ITS ---
Discharge Diet: Light diet - advance as tolerated Discharge Activity: May not drive while taking narcotic pain medications. May shower in (days): 1 Lifting Restrictions: No lifting greater than 20 pounds x 3 weeks no strenuous exercise for 6 wee Call your doctor if your incision/area has: Continuous Slow Oozing, Sudden Increased Bleeding, Increased Pain/ Swelling, Increased Redness, Foul Smelling Discharge, Swelling at the incision site Call your doctor if you observe: Fever of 101 or Higher Remove Dressing in (days):: 1 - To remove op sites tomorrow, Steri-Strips will stand for 7 to 10 days but on follow-up in 10 days okay to remove Additional Instructions: Okay to take ibuprofen 400-600 mg PO q6hr PRN along with the Percocet. Avoid Tylenol since there is already Tylenol in the Percocet. Take all pain meds with food. Percocet can cause constipation recommend taking daily stool softener (i.e. Colace/docusate) while taking the pain meds. Recommend starting some MiraLAX today if no bowel movement. If still no bowel movement later tomorrow recommend taking magnesium citrate half the bottle and waiting 4-6 hours if still no results take the other half the bottle. Allergies/Adverse Reactions: Allergies kiwi Allergy (Verified 03/28/19 22:32) Hives Medications to take at Discharge Famotidine [Pepcid AC] 20 mg PO DAILY 12/23/18 Oxycodone HCl/Acetaminophen [Percocet 5/325] 1 - 2 tablet PO Q6H PRN PRN 4 Days #25 tablet 03/29/19 Pantoprazole Sodium 40 mg PO DAILY #30 tablet. 03/29/19 Primary Care Physician: Austin Negro MD [Primary Care Provider] - Test Results: Test results from this visit will be discussed in further detail at your follow- up appointment, if applicable. Please Follow Up With: Susanna Downing MD - After 5 PM/we can call [phone] with any concerns When: Call the office for follow-up appointment in 2 weeks Proposed Discharge Date: 03/29/19
[2019-03-29] MEDS: Morphine 4 MG/ML Syringe IV (17:40)
--- NOTE | 2019-03-29 20:12 | NURSING ---
pt d/c. pt went out in a wheelchair. friend taking her home. all belongings were sent with the pt including IS.
== END 2019-03-29 20:08 | disposition home or self-care (01) ==
LOC: ED 03-29 05:02 → MS3 03-29 05:14
PROVIDERS: Admitting Provider Surgery; Emergency Provider Emergency Medicine; Family Provider Family Medicine; PCP Family Medicine; Visit Provider Surgery
PROC: (CPT 47610; principal; 2019-03-29 07:10)
DX: K80.12 Calculus of gallbladder with acute and chronic cholecystitis without obstruction (principal); K21.9 Gastro-esophageal reflux disease without esophagitis; Z79.899 Other long term (current) drug therapy; F17.210 Nicotine dependence, cigarettes, uncomplicated
CPT/HCPCS: 47563; 36415; 71046; 74177; 74300; 76000; 76705; 80048; 80076; 81001; 81025; 83690; 84484; 85025; 88304; 93005; 96365; 96366; 96367; 96375; 96376; 99218; 99285; J7030; J7040; J7050; J7120; Q9967; A4216; G0378; J2405